=== PATIENT | male | born 1945 | race Caucasian/White ===

== ENCOUNTER 2017-09-22 05:34 | Emergency (ER) | payer OTHER ==
[2017-09-22 05:57] VITALS: BP 136/74; PULSE 115; RESP 19; TEMP 98.7; O2SAT 98
[2017-09-22] MEDS ORDERED: ATOR40TA16 PO (05:59)
[2017-09-22] MEDS ORDERED: AMLO10TA2 PO (05:59)
[2017-09-22] MEDS ORDERED: BENA40TA PO (05:59)
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
[2017-09-22] MEDS ORDERED: IBUPROFEN 600 MG TAB PO ONE (06:45)
[2017-09-22] MEDS ORDERED: oxyCODONE/ACETAMINOPHEN 5 MG/325 MG TAB PO ONE (06:45)
[2017-09-22] MEDS ORDERED: PERC5TAB12 PO (06:45)
== END 2017-09-22 08:53 | disposition home or self-care (01) ==
LOC: NEPC 05:34
DX: S63.502A Unspecified sprain of left wrist, initial encounter (principal); E78.00 Pure hypercholesterolemia, unspecified; I10 Essential (primary) hypertension; V19.9XXA Pedal cyclist (driver) (passenger) injured in unspecified traffic accident, initial encounter; Y93.55 Activity, bike riding
CPT/HCPCS: 73110; 99283; L3908